=== PATIENT | female | born 1965 | race American Indian/Alaskan Native ===

== ENCOUNTER 2022-01-16 15:11 | Emergency (ER) | payer SELFPAY ==
[2022-01-16 15:28] VITALS: BP 140/83
== END 2022-01-16 19:00 | disposition left against medical advice (07) ==
LOC: ED 15:11
DX: H66.90 Otitis media, unspecified, unspecified ear (principal); J02.0 Streptococcal pharyngitis; Z53.21 Procedure and treatment not carried out due to patient leaving prior to being seen by health care provider
CPT/HCPCS: 87116; 87430